=== PATIENT | female | born 1960 | race Caucasian/White ===

== ENCOUNTER 2020-09-28 13:44 | Emergency (ER) | payer MEDICARE, OTHER, SELFPAY ==
[2020-09-28 14:26] VITALS: BP 151/76; PULSE 98; RESP 18; O2SAT 98; BMI 28.3
--- NOTE | 2020-09-28 14:50 | ED_ITS ---
HPI - Extremity Problem General Chief complaint: Extremity Injury, Lower Stated complaint: left leg pain Time Seen by Provider: 09/28/20 13:59 Source: patient Mode of arrival: ambulatory Limitations: no limitations History of Present Illness HPI Narrative: 60yo female with past medical history of arthritis, cardiac stent 02/2020 here with LLE pain x 1 month. Patient does know she has no bursitis in the left hip. She has had some pain for the last month in the left hip. No injury or trauma. The pain radiates down the leg and she has some what she thinks is swelling over the left thigh. She also knows last 2 days she had some pain over the left lower leg. No numbness or tingling. This is the same side that she had a cardiac catheterization done in February. She is on Plavix and aspirin. No swelling per patient. No redness, fevers, chills. MD Complaint: extremity pain Onset (ago): month(s) (1) Pain Consistency: intermittent Location: left Quality: aching Relieving factors: immobilization Exacerbating factors: range of motion and weight bearing Associated symptoms: denies other symptoms Related Data Previous Rx's Medication Instructions Recorded diazepam 5 mg PO TID PRN #10 tab 09/28/20 Allergies Allergy/AdvReac Type Severity Reaction Status Date / Time terfenadine [From SELDANE] Allergy Unknown HIVES Verified 09/28/20 14:25 bees Allergy Unknown Swelling Uncoded 09/28/20 14:25 Review of Systems Review of Systems: Yes all other systems are reviewed and are negative Constitutional: Constitutional: Reports no additional constitutional complaints, Denies body ache(s), Denies chills, Denies fever(s), Denies headache(s) and Denies weakness Eyes: Eyes: Reports no additional eye complaints and Denies change in vision ENT: Reports system reviewed and no additional complaints, except as documented, Denies dizziness, Denies headache(s), Denies nasal congestion, Denies nasal discharge and Denies neck pain Cardiovascular: Cardiovascular: Reports no additional cardiovascular complaints, Denies chest pain, Denies leg edema and Denies dyspnea Respiratory: Respiratory: Reports no additional respiratory complaints, Denies cough and Denies dyspnea Gastrointestinal: Gastrointestinal: Reports no additional gastrointestinal complaints, Denies abdominal pain, Denies diarrhea, Denies nausea and Denies vomiting Genitourinary: Genitourinary: Reports no additional female genitourinary complaints and Denies urinary incontinence Musculoskeletal: Musculoskeletal: Reports no additional musculoskeletal complaints, Denies back pain, Reports arthralgias, Denies joint swelling, Denies neck pain, Denies numbness and Denies tingling Integumentary/Breasts: Skin/Breast: Reports system reviewed and no additional complaints, except as docu and Denies rash Neurologic: Reports system reviewed and no additional complaints, except as documented, Denies Abnormal speech present, Denies dizziness, Denies headache(s), Denies numbness, Denies tingling and Denies weakness [facility] Past Medical History Attestation statement: The following information was validated with the patient. Source: old records reviewed and nursing notes reviewed Medical History Arthritis Bursitis Surgical History H/O heart artery stent Total knee replacement status Social History Social History Advance Directives: No Advance Directives Information Provided: Yes Physical Exam Vital Signs: Vital Signs: Last Vital Signs Pulse 98 09/28/20 14:26 Resp 18 09/28/20 14:26 BP 151/76 H 09/28/20 14:26 Pulse Ox 98 09/28/20 14:26 Body Mass Index 28.3 Const: General: cooperative, healthy appearing, comfortable and no acute distress Orientation/consciousness: patient oriented x3 Limitations: no limitations HENMT: Head: Yes normal to inspection Ears: hearing grossly normal bilaterally General nose exam: Normal external nose present Face and sinus: Yes normal facial exam Mouth: Normal oral and palatal mucosa present Throat: Yes posterior oropharynx normal Eyes: General: appearance normal, both eyes and all related structures Pupils: Equal, round and reactive pupils present Neck: Neck: Yes normal visual inspection Chest: Chest palpation & inspection: normal inspection of the chest Resp: Effort & Inspection: normal respiratory effort Auscultation: clear to auscultation bilaterally Cardio: Rate: regular rate Rhythm: regular rhythm Peripheral pulses: Peripheral pulses 2+ throughout GI: Inspection: Yes normal to inspection Palpation (GI): Soft to palpation and nontender Auscultation: normal bowel sounds Back/Spine/Pelvis: Thoracic/Lumbar Spine: thoracic and lumbar spine normal to inspection Skin: General skin exam: no rashes or lesions noted Neuro: General: patient oriented x3, no focal motor deficits and normal sensation to monofilament Cranial nerves: Yes Equal, round and reactive pupils present Cognition (Neuro): normal cognition Speech: No Abnormal speech present Gait exam (Neuro): Normal gait present Motor exam (neuro): 5/5 motor strength present throughout Extrem: Other: Pain on palpation over anterior left hip, pain with external rotation and with knee flexion and raising. No palpable swelling or deformity appreciated on exam. NV intact distally. Pain over left lower leg both anteriorly and posteriorly with no obvious swelling or ecchymosis. Healed surgical site to left groin with no swelling, ecchymosis. General: Yes normal to inspection Course Course Course Narrative: 60 yo female here with LLE pain x 1 month. Of note, cardiac cath same side 6 months ago. Pain over left anterior hip, LLE. Surgical site appears well. Will check vascular US to r/o DVT, arterial to eval cardiac cath site to r/o pseudo, X-ray. 1640-x-ray consistent with arthritis and bursitis. Ultrasound negative for DVT or pseudoaneurysm at the cardiac catheterization site. Pain may be secondary to underlying bursitis also may have a hip flexor strain. 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 Reviewed worrisome signs and symptoms and when to return to the emergency department. Comfortable discharge home. MDM - Extremity (Nontraumatic) Imaging Data hip xray: Attestation: I personally reviewed and interpreted this imaging study as follows: Radiologist's impression: EXAMINATION: XR HIP, LEFT CLINICAL INFORMATION: Pain COMPARISON: Previous pelvis x-ray June 2013 TECHNIQUE: Two views of the left hip and one view of the pelvis. FINDINGS: Bone alignment is normal. No fracture or dislocation is seen. There is arthritis at the left hip joint with joint space narrowing, osteophyte formation and some subchondral cyst formation. There is a round soft tissue calcification in the pelvis probably representing a calcified fibroid. There is soft tissue ossification calcification superior to the right greater trochanter likely related to old trauma or surgery that is unchanged. There may be soft tissue calcification or ossification projecting over the medial right femoral head as well. Bones of the pelvis are unremarkable. There are degenerative changes of the visualized lower lumbar spine. XR/XR hip LT min 2V IMPRESSION: Left hip arthritis. Stable soft tissue calcification or ossification adjacent to the right greater trochanter likely related to old soft tissue trauma or prior surgery. Venous US: Attestation: I personally reviewed and interpreted this imaging study as follows: Radiologist's impression: [address] [address] Ultrasound Report Signed Patient: Tiffany GreenMR#: [id number] : [id number]:[id number] Age/Sex: 60 / FADM Date: 09/28/20 Loc: HO.ED Attending Dr: Ordering Physician: CANDACE RAMOS NP Date of Service: 09/28/20 Procedure(s): US venous duplex LE LT Accession Number(s): [id number] cc: CANDACE RAMOS NP~ EXAMINATION: US VENOUS ULTRASOUND WITH DOPPLER LOWER EXTREMITY, LEFT CLINICAL INFORMATION: Recent cardiac catheterization. Pain. Evaluate for DVT. COMPARISON: None TECHNIQUE: Ultrasound of the deep veins is performed from the hip to the calf with compression sonography and color and pulse Doppler assessment. Spectral analysis with color-flow imaging is performed. FINDINGS: There is normal venous compression and respiratory variation and augmented flow. The visualized common femoral vein, superficial femoral vein, profunda femoral vein, popliteal vein, and the trifurcation region shows no evidence of deep venous thrombosis. There is no significant popliteal fossa cyst. US/US venous duplex LE LT IMPRESSION: No DVT demonstrated in the left lower extremity. arterial us: Attestation: I personally reviewed and interpreted this imaging study as follows: Radiologist's impression: US/US arterial duplex LE LT IMPRESSION: No pseudoaneurysm, hematoma or fluid collection seen. The left common femoral, proximal superficial femoral and proximal profunda femoral arteries in the left thigh are patent. Discharge Plan Discharge Clinical Impression: Muscle spasm Bursitis Qualifiers: Bursitis location: hip Laterality: left Patient Disposition: Home, Self-Care Instructions: Hip Bursitis (ED), Muscle Spasm (ED) Prescriptions: New diazepam 5 mg tablet 5 mg PO TID PRN (Reason: muscle spasm) Qty: 10 RF: 0 Referrals: Ngoc Huggins DO [Primary Care Provider] - 2 days Interventions: ED Discharge Assessment Last Done: 09/28/20 16:37 Discharge Date/Time: 09/28/20 16:38
--- NOTE | 2020-09-28 15:04 | US_ITS ---
EXAMINATION: ULTRASOUND ARTERIAL LEFT LOWER EXTREMITY CLINICAL INFORMATION: Pain post cardiac catheterization. Evaluate for pseudoaneurysm. COMPARISON: None TECHNIQUE: Doppler, color and grayscale evaluation of the arteries of the left lower extremity in the 1 including waveform spectral analysis FINDINGS: The left common femoral, proximal superficial femoral, and proximal profunda arteries in the left groin are patent. No pseudoaneurysm is seen. No soft tissue hematoma or fluid collection is seen. Peak systolic velocity in the left common femoral artery is normal measuring 124 cm/s with triphasic. Systolic velocity in the proximal superficial femoral artery is normal measuring 104 cm/s with triphasic flow. Peak systolic velocity in the left proximal profunda femoral artery is normal measuring 133 cm/s with biphasic flow. US/US arterial duplex LE LT IMPRESSION: No pseudoaneurysm, hematoma or fluid collection seen. The left common femoral, proximal superficial femoral and proximal profunda femoral arteries in the left thigh are patent.
== END 2020-09-28 16:38 | disposition home or self-care (01) ==
PROVIDERS: Emergency Provider Emergency Medicine; PCP Internal Medicine
DX: M70.72 Other bursitis of hip, left hip (principal); M62.838 Other muscle spasm; M79.605 Pain in left leg
CPT/HCPCS: 73502; 93926; 93971; 99283; 99284

== ENCOUNTER 2022-09-18 15:02 | Emergency (ER) | payer MEDICARE, SELFPAY ==
[2022-09-18 15:21] VITALS: BP 145/99; PULSE 110; RESP 16; TEMP 37.2; O2SAT 95; BMI 29.2
[2022-09-18 17:53] LABS: Influenza A PCR NEGATIVE (Negative); Influenza B PCR NEGATIVE (Negative); Resp Syncy Virus RNA Qual PCR NEGATIVE (Negative); SARS COV2 PCR INHOUSE NEGATIVE (Negative)
[2022-09-18 18:09] VITALS: BP 131/61; PULSE 92; RESP 18; TEMP 37.5; O2SAT 95
[2022-09-18 18:10] VITALS: O2SAT 92
--- NOTE | 2022-09-18 18:32 | PC.NURSE ---
pt did ambulation trial, patients O2 sat was 95% at rest and went to 92% with ambulation, pt was able to speak in full sentences and had no sob with ambulation.
--- NOTE | 2022-09-18 18:40 | ED.URI ---
HPI - URI/Sore Throat General Chief Complaint: Upper Respiratory Symptoms Stated Complaint: Pneumonia sent by urgent care Time Seen by Provider: 09/18/22 18:25 Source: patient and old records reviewed History of Present Illness HPI Narrative: Patient states she has been sick for approximately 1 week. URI symptoms with intractable cough for the 1st 4 days. Then she developed a fever 2 days ago to 104. Feeling worse. No nausea vomiting diarrhea constipation. She has been using ibuprofen for the fever. She complains of some chest and abdominal pain with cough only. No prior history of similar issues. Her had a URI syndrome this started about the same time but he is feeling much better. Positive decreased hearing with ear pressure but no pain. Bilaterally. Loss of voice but no sore throat. She went to urgent care today and they found her to be hypoxic so they sent her to the emergency department with concerns for pneumonia. Related Data Previous Rx's Medication Instructions Recorded diazepam 5 mg tablet 5 mg PO TID PRN muscle spasm #10 09/28/20 tabs albuterol sulfate 90 mcg/actuation 2 puff inhalation QID PRN 09/18/22 aerosol inhaler shortness of breath or wheezing #8.5 grams azithromycin 250 mg tablet See Rx Instructions PO .COMPLEX #6 09/18/22 (Zithromax) tabs prednisone 20 mg tablet 40 mg PO DAILY #10 tabs 09/18/22 Allergies Allergy/AdvReac Type Severity Reaction Status Date / Time terfenadine [From SELDANE] Allergy Unknown HIVES Verified 09/18/22 15:20 bees Allergy Unknown Swelling Uncoded 09/28/20 14:25 Review of Systems Constitutional: Comments: Fevers and chills and general malaise ENT: Comments: loss of hearing and loss of voice. No ear pain no sore throat Cardiovascular: Comments: no palpitations. Musculoskeletal type chest pain with cough Respiratory: Comments: cough. dyspnea on exertion. Feels like she has sputum but is difficult to express. Gastrointestinal: Comments: No nausea or vomiting. Some abdominal pain with coughing only. Integumentary/Breasts: Comments: No rash Neurologic: Comments: no focal weakness PMFSH Past Medical History Medical History Arthritis Bursitis Surgical History H/O heart artery stent Total knee replacement status Social History Social History Advance Directives: No Advance Directives Information Provided: No Physical Exam Vital Signs: Vital Signs: Last Vital Signs Temp 99.5 F 09/18/22 18:09 Pulse 92 09/18/22 18:09 Resp 18 09/18/22 18:09 BP 131/61 09/18/22 18:09 Pulse Ox 92 09/18/22 18:10 O2 Del Method 09/18/22 18:10 BMI result Body Mass Index 29.2 Const: Other: awake and alert. No acute distress. Oxygen saturation here in the emergency department 92% on room air with a respiratory rate of 18. Temperature 99.5 degrees. No acute respiratory distress however HEENT: Other: bilateral tympanic membranes retracted. No significant erythema. No effusion. Oropharynx with mild erythema but no exudate Resp: Other: clear and equal bilaterally at this time. No wheezes rales or rhonchi. Cardio: Other: Regular rate and rhythm without murmurs rubs or gallops GI: Other: soft nontender nondistended Skin: Other: warm pink and dry without rash Neuro: Other: no obvious focal neuro deficits Course Course Course Narrative: 18:54. Chest x-ray shows no infiltrate. Lab work unremarkable PCR is negative for influenza, COVID-19, RSV. Given pattern of her illness, will add antibiotics. Will also treat with steroids and albuterol for bronchospasm secondary to bacterial URI Medications Administered Discontinued Medications Generic Name Dose Route Start Last Admin Trade Name Devan PRN Reason Stop Dose Admin Acetaminophen 650 mg 09/18/22 16:38 09/18/22 16:41 Acetaminophen 325 Mg Tablet PO 09/18/22 16:39 650 mg ONCE ONE Administration Medical Decision Making Medical Decision Making MDM Narrative: patient with URI type symptoms. Rule out bronchitis Rule out pneumonia Given high fevers starting over 4 days post onset of symptoms, secondary infection seems very possible. Rule out COVID, influenza, RSV. Lab Data Labs: Lab Results 09/18/22 Range/Units 17:10 Influenza Type A (PCR) NEGATIVE (Negative) Influenza Type B (PCR) NEGATIVE (Negative) RSV RNA Qual (PCR) NEGATIVE (Negative) SARS-CoV-2 RNA (RT-PCR) NEGATIVE (Negative) Discharge Plan Discharge Clinical Impression: Upper respiratory infection, Acute bronchospasm Patient Disposition: Home, Self-Care Instructions: Acute Bronchitis (ED), Bronchospasm (ED) Prescriptions: New albuterol sulfate 90 mcg/actuation HFA aerosol inhaler 2 puff inhalation QID PRN (Reason: shortness of breath or wheezing) Qty: 8.5 0RF azithromycin [Zithromax] 250 mg tablet See Rx Instructions .ROUTE .COMPLEX Qty: 6 0RF Rx Instructions: For 250 mg dose pack: take 500 mg today (day 1), then 250 mg for 4 days (days 2-5) prednisone 20 mg tablet 40 mg PO DAILY Qty: 10 0RF No Action diazepam 5 mg tablet 5 mg PO TID PRN (Reason: muscle spasm) Qty: 10 0RF
== END 2022-09-18 19:08 | disposition home or self-care (01) ==
PROVIDERS: Emergency Provider Emergency Medicine; PCP Internal Medicine
DX: J06.9 Acute upper respiratory infection, unspecified (principal); J98.01 Acute bronchospasm; R50.9 Fever, unspecified; Z20.828 Contact with and (suspected) exposure to other viral communicable diseases
CPT/HCPCS: 0241U; 71045; 99283